=== PATIENT | female | born 1995 | race Caucasian/White ===

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

== ENCOUNTER 2017-03-25 09:22 | Emergency (ER) | payer OTHER ==
[2017-03-25 10:50] VITALS: BP 104/68
--- NOTE | 2017-03-26 09:28 | ED ---
Cedric Conway Angela, scribed for Elliott Pop MD on 03/25/17 at 0955 . Influenza-Like Illness - HPI Summary HPI Summary: This pt is a 21 y/o female presenting to [facility] c/o body aches, fever, congestion , sore throat since this morning. Pt additionally notes she has a headache, described as pressure. She denies chest pain or SOB. PMHx: concussion x9. Surgeries: wisdom teeth extraction. - History of Current Complaint Chief Complaint: EDFluSymptoms Time Seen by Provider: 03/25/17 09:33 Hx Obtained From: Patient Onset/Duration: Lasting Hours, Still Present Severity: Moderate Associated Signs & Symptoms: Fever, Myalgia, Sore Throat, Nasal Congestion - Allergy/Home Medications Allergies/Adverse Reactions: Allergies Allergy/AdvReac Type Severity Reaction Status Date / Time No Known Allergies Allergy Verified 11/04/16 01:28 PMH/Surg Hx/FS Hx/Imm Hx Endocrine/Hematology History: Denies: Hx Diabetes Cardiovascular History: Reports: Hx Hypotension Denies: Hx Congestive Heart Failure Neurological History: Reports: Other Neuro Impairments/Disorders - Hx concussions (x9), headaches - Surgical History Surgery Procedure, Year, and Place: [place] teeth extraction - Immunization History Date of Tetanus Vaccine: utd Date of Influenza Vaccine: 2015 Infectious Disease History: No Infectious Disease History: Denies: Traveled Outside the [place] in Last 30 Days - Family History Known Family History: Positive: Other - POS: migraines. Negative: Cardiac Disease, Hypertension, Diabetes - Social History Alcohol Use: Rare Substance Use Type: Reports: None Smoking Status (MU): Never Smoked Tobacco Review of Systems Positive: Fever, Chills ENT: Other - congestion Positive: Sore Throat Positive: Myalgia Positive: Headache All Other Systems Reviewed And Are Negative: Yes Physical Exam - Summary Physical Exam Summary: VITAL SIGNS: Reviewed. GENERAL: Patient is a well-developed and nourished (MALE OR FEMALE) who is lying comfortable in the stretcher. Patient is not in any acute respiratory distress. HEAD AND FACE: No signs of trauma. No ecchymosis, hematomas or skull depressions. No sinus tenderness. Positive for runny nose. EYES: PERRLA, EOMI x 2, No injected conjunctiva, no nystagmus. EARS: Hearing grossly intact. Ear canals and tympanic membranes are within normal limits. MOUTH: Pharyngeal erythema. NECK: Supple, trachea is midline, no adenopathy, no JVD, no carotid bruit, no c- spine tenderness, neck with full ROM. CHEST: Symmetric, no tenderness at palpation LUNGS: Clear to auscultation bilaterally. No wheezing or crackles. CVS: Regular rate and rhythm, S1 and S2 present, no murmurs or gallops appreciated. ABDOMEN: Soft, non-tender. No signs of distention. No rebound no guarding, and no masses palpated. Bowel sounds are normal. EXTREMITIES: FROM in all major joints, no edema, no cyanosis or clubbing. NEURO: Alert and oriented x 3. No acute neurological deficits. Speech is normal and follows commands. SKIN: Dry and warm Triage Information Reviewed: Yes Vital Signs On Initial Exam: Initial Vitals Temp Pulse Resp BP Pulse Ox 98.9 F 116 20 119/89 97 03/25/17 09:25 03/25/17 09:25 03/25/17 09:25 03/25/17 09:25 03/25/17 09:25 Vital Signs Reviewed: Yes Diagnostics - Vital Signs Vital Signs Temp Pulse Resp BP Pulse Ox 03/25/17 09:25 98.9 F 116 20 119/89 97 - Laboratory Lab Results: Lab Results 03/25/17 Range/Units 10:17 Influenza A (Rapid) Positive H (Negative) Influenza B (Rapid) Negative (Negative) Lab Statement: Any lab studies that have been ordered have been reviewed, and results considered in the medical decision making process. Flu Symptom Course/Dx - Course Assessment/Plan: This pt is a 21 y/o female presenting [place] [facility] [place] body aches, fever, congestion, sore throat since this morning. Pt additionally notes she has a headache, described as pressure. She denies chest pain or SOB. PMHx: concussion x9. Surgeries: wisdom teeth extraction. Test results show Influenza A is positive. She was recommended to increase fluid intake and stay home for 72 hours. She was treated with Tamiflu. Pt will be discharged to home with follow up from her PCP. Pt is hemodynamically stable, alert and oriented x3. - Diagnoses Differential Diagnosis/HQI/PQRI: Positive: Bronchitis, Broncholiolitis, Influenza, Pneumonia, Upper Respiratory Infection Provider Diagnoses: Influenza A Discharge - Discharge Plan Condition: Stable Disposition: HOME Prescriptions: Oseltamivir SUSP 75 MG dose* [Tamiflu SUSP 75 MG dose*] 75 mg PO BID #10 oral.[email or web address] Patient Education Materials: Influenza (ED) Forms: *School Release Referrals: Antonella Pearce [Primary Care Provider] - Additional Instructions: Increase fluid intake Take medications as indicated. The documentation as recorded by the Cedric moyer Angela accurately reflects the service I personally performed and the decisions made by Donn coley Walter, MD.
== END 2017-03-25 10:49 | disposition home or self-care (01) ==
LOC: ED 09:22
DX: J09.X2 Influenza due to identified novel influenza A virus with other respiratory manifestations (principal)
CPT/HCPCS: 87502; 99282